=== PATIENT | male | born 1985 | race Two or more races ===

== ENCOUNTER 2020-01-07 10:40 | Emergency (ER) | payer OTHER, BC ==
[~2020-01-07] VITALS: Ht 180.3 cm; Wt 81.6 kg
[2020-01-07 10:54] VITALS: BP 139/94
[2020-01-07] MEDS ORDERED: IBUPROFEN 800 MG TAB PO ONE (12:30)
== END 2020-01-07 12:35 | disposition home or self-care (01) ==
LOC: ER 10:40
DX: S16.1XXA Strain of muscle, fascia and tendon at neck level, initial encounter (principal); R51 Headache; V43.52XA Car driver injured in collision with other type car in traffic accident, initial encounter; Y93.I9 Activity, other involving external motion; Y92.410 Unspecified street and highway as the place of occurrence of the external cause; Y99.8 Other external cause status
CPT/HCPCS: 70450; 72125